=== PATIENT | female | born 1965 | race Caucasian/White ===

== ENCOUNTER 2017-04-28 17:30 | Emergency (ER) | payer MEDICARE, OTHER ==
[~2017-04-28] VITALS: Ht 172.7 cm; Wt 113.4 kg
[~2017-04-28 17:30] MED LIST: AMLODIPINE BESY10 M1 PO; BACTRIM 400 MG-1 TAB PO; BACTRIM DS 8001 TAB PO; BACTROBAN22 TP; CARVEDILOL 25MG25 MG PO; FENOFIBRATE MI134 MG PO; FUROSEMIDE 20MG20 MG PO; GLYCOLAX17 GM/DOSE PO; HYDRALAZINE HCL25 M1 PO; INSULIN GL100 UNITS/ SC; MEDROXYPROGESTE10 M1 PO; NOVOLOG FLEX100 U/ML SC; TRAZODONE 50MG50 MG PO; VITAMIN D31000 IU PO; ZOLPIDEM 10MG T10 MG PO
--- NOTE | 2017-04-28 18:25 | Emergency Room Report ---
History of Present Illness Time Seen by [id number] Presenting Problem in Triage Pt arrived:Walked Presenting Problem:SLICED OFF TIP OF FINGER Onset of symptoms date/time:04/28/17 or onset unknown for: Treatment Prior to Arrival: CLEANED AND WRAPPED AT HOME THIS MORNING [employer] Provided by:SELF Sepsis Risk Assessment: Temp: 98.3 B/P: 229/95 MAP: 139 Pulse: 93 Resp: 18 Recent fever? N Clinical Suspician of Infection? N Mental Status: 1 - Regular (Normal Baseline) Sepsis Risk:Low Sepsis Risk Have you (or family members/close friends) recently traveled outside the [place]? N If Yes, where/when: Have you had exposure to infectious disease within the past month? TB? Other? Specify: Comment The patient cut a piece of skin off of the tip of her RIGHT middle finger this morning about 6:30 to 7 AM while making pickles at home. She has been unable to get it to stop bleeding all day. Last tetanus shot is unknown. She is not on any blood thinners, but gets heparin in her vascular access at dialysis. ALLERGIES Coded Allergies: clarithromycin (From BIAXIN) (Mild, 04/28/17) hydrocodone (From LORTAB) (Mild, 04/28/17) lisinopril (TROUBLE BREATHING 04/28/17) Home Medications Reported Medications INSULIN GLARGINE (Lantus 3ML Solostar Pen) 6 UNITS SC QHS #10 VIAL Insulin Aspart, Recombinant (Novolog Flexpen) 15 UNITS SC ACHS #10 VIAL Furosemide (Furosemide) 120 MG PO BID #30 TAB Carvedilol (Carvedilol 25MG) 12.5 MG PO BID #60 TAB Amlodipine Besylate 5 MG PO DAILY #30 TAB TRAZODONE HCL (Trazodone HCl) 50 MG PO QHS CHOLECALCIFEROL (VITAMIN D3) (Vitamin D) 50,000 IUNITS PO DAILY Hydralazine Hcl (Hydralazine 25MG Tab) 25 MG PO BID History Medical History General CAD? No Angina: Yes MA: No Hypertension? Yes Hyperlipidemia? Yes CHF? No DVT? No PE? No COPD? No Asthma? No Anemia? No GERD? No Gastric ulcers? No GI Bleed? No Hernia? No Thyroid Problems? No Hypothyroidism? No CVA? No Seizures? No Diabetes? Yes Insulin Dependent: Yes Insulin Pump: No Home FSBS? Yes Renal Insuffiency? No End Stage Renal Disease? Yes UTI? Yes Stones? No BPH? No GB Disease: Yes Nephritic Syndrome? No Asplenia? No Hepatitis? No Sickle Cell Disease? No Arthritis? No Migraines? No Cataracts? No Glaucoma? No MRSA? No HIV? No TB? No Anxiety? No Depression? No Cancer? No More? 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 Cardiovascular regular rate/rhythm, normal peripheral pulses Extremities 1 cm x 0.5 cm avulsion of skin on the tip of her RIGHT middle finger with active oozing of blood. Neurologic alert, no motor/sensory deficits Medical Decision Making LABS/Meds/Orders Pt receiving controlled substance in ED? No Results/Orders Current Medication Orders Sig/Rubi Start time Last Medication Dose Route Stop Time Status Admin Diphtheria/Pertussis/ 0 .STK-MED ONE 04/28 1842 DC Tetanus Vacc IM Diphtheria/Pertussis/ 0.5 ML ONCE ONE 04/28 1830 DC Tetanus Vacc IM 04/28 1831 Bupivacaine HCl 0 .STK-MED ONE 04/28 1754 DC .ROUTE Silver Nitrate/ 0 .STK-MED ONE 04/28 1749 DC Potassium Nitrate EX Procedures Laceration/Wound Repair Progress Cautery of skin avulsion performed. Anesthesia with 0.5 percent Marcaine by digital block. Cauterized with silver nitrate. Departure Departure Disposition DC Home or Self Care(routine) Clinical Impression Primary Impression: Avulsion of skin of finger Qualifiers: Encounter type: initial encounter Qualified Code: S61.209A - Unspecified open wound of unspecified finger without damage to nail, initial encounter Condition STABLE Patient Instructions DI for Open Laceration Additional Instructions Gently cleanse daily with soap and water and apply a nonstick bandage. ED Critical Care Critical Care No at 1917
--- NOTE | 2017-04-28 18:25 | Emergency Room Report ---
History of Present Illness Time Seen by [id number] Presenting Problem in Triage Pt arrived:Walked Presenting Problem:SLICED OFF TIP OF FINGER Onset of symptoms date/time:04/28/17 or onset unknown for: Treatment Prior to Arrival: CLEANED AND WRAPPED AT HOME THIS MORNING [place] Provided by:SELF Sepsis Risk Assessment: Temp: 98.3 B/P: 229/95 MAP: 139 Pulse: 93 Resp: 18 Recent fever? N Clinical Suspician of Infection? N Mental Status: 1 - Regular (Normal Baseline) Sepsis Risk:Low Sepsis Risk Have you (or family members/close friends) recently traveled outside the [place]? N If Yes, where/when: Have you had exposure to infectious disease within the past month? TB? Other? Specify: Comment The patient cut a piece of skin off of the tip of her RIGHT middle finger this morning about 6:30 to 7 AM while making pickles at home. She has been unable to get it to stop bleeding all day. Last tetanus shot is unknown. She is not on any blood thinners, but gets heparin in her vascular access at dialysis. ALLERGIES Coded Allergies: clarithromycin (From BIAXIN) (Mild, 04/28/17) hydrocodone (From LORTAB) (Mild, 04/28/17) lisinopril (TROUBLE BREATHING 04/28/17) Home Medications Reported Medications INSULIN GLARGINE (Lantus 3ML Solostar Pen) 6 UNITS SC QHS #10 VIAL Insulin Aspart, Recombinant (Novolog Flexpen) 15 UNITS SC ACHS #10 VIAL Furosemide (Furosemide) 120 MG PO BID #30 TAB Carvedilol (Carvedilol 25MG) 12.5 MG PO BID #60 TAB Amlodipine Besylate 5 MG PO DAILY #30 TAB TRAZODONE HCL (Trazodone HCl) 50 MG PO QHS CHOLECALCIFEROL (VITAMIN D3) (Vitamin D) 50,000 IUNITS PO DAILY Hydralazine Hcl (Hydralazine 25MG Tab) 25 MG PO BID History Medical History General CAD? No Angina: Yes [place]: No Hypertension? Yes Hyperlipidemia? Yes CHF? No DVT? No PE? No COPD? No Asthma? No Anemia? No GERD? No Gastric ulcers? No GI Bleed? No Hernia? No Thyroid Problems? No Hypothyroidism? No CVA? No Seizures? No Diabetes? Yes Insulin Dependent: Yes Insulin Pump: No Home FSBS? Yes Renal Insuffiency? No End Stage Renal Disease? Yes UTI? Yes Stones? No BPH? No GB Disease: Yes Nephritic Syndrome? No Asplenia? No Hepatitis? No Sickle Cell Disease? No Arthritis? No Migraines? No Cataracts? No Glaucoma? No MRSA? No HIV? No TB? No Anxiety? No Depression? No Cancer? No More? 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 Cardiovascular regular rate/rhythm, normal peripheral pulses Extremities 1 cm x 0.5 cm avulsion of skin on the tip of her RIGHT middle finger with active oozing of blood. Neurologic alert, no motor/sensory deficits Medical Decision Making LABS/Meds/Orders Pt receiving controlled substance in ED? No Results/Orders Current Medication Orders Sig/Rubi Start time Last Medication Dose Route Stop Time Status Admin Diphtheria/Pertussis/ 0 .STK-MED ONE 04/28 1842 DC Tetanus Vacc IM Diphtheria/Pertussis/ 0.5 ML ONCE ONE 04/28 1830 DC Tetanus Vacc IM 04/28 1831 Bupivacaine HCl 0 .STK-MED ONE 04/28 1754 DC .ROUTE Silver Nitrate/ 0 .STK-MED ONE 04/28 1749 DC Potassium Nitrate EX Procedures Laceration/Wound Repair Progress Cautery of skin avulsion performed. Anesthesia with 0.5 percent Marcaine by digital block. Cauterized with silver nitrate. Departure Departure Disposition DC Home or Self Care(routine) Clinical Impression Primary Impression: Avulsion of skin of finger Qualifiers: Encounter type: initial encounter Qualified Code: S61.209A - Unspecified open wound of unspecified finger without damage to nail, initial encounter Condition STABLE Patient Instructions DI for Open Laceration Additional Instructions Gently cleanse daily with soap and water and apply a nonstick bandage. ED Critical Care Critical Care No at 1917
[2017-04-28 18:51] VITALS: BP 179/85
== END 2017-04-28 18:52 | disposition home or self-care (01) ==
LOC: ER 17:30
PROC: 0JQJ0ZZ Repair Right Hand Subcutaneous Tissue and Fascia, Open Approach (ICD-10-PCS; principal; 2017-04-28)
DX: S61.212A Laceration without foreign body of right middle finger without damage to nail, initial encounter (principal); W26.0XXA Contact with knife, initial encounter; Y92.010 Kitchen of single-family (private) house as the place of occurrence of the external cause; Z23 Encounter for immunization

== ENCOUNTER → 2017-07-11 | Outpatient (CLI) | payer MEDICARE, OTHER ==
[2017-07-11 09:50] LABS: HEMOGLOBIN 11.5 g/dL (12.2-16.2); LYMPH # 1.4 K/mm3 (0.7-4.5); LYMPH % 17.9 % (10-50.0)
[2017-07-11 11:16] LABS: BUN 48 mg/dL (7-18); GFR (ESTIMATED) 6 ML/MIN (59-)
--- NOTE | 2017-07-11 12:17 | RADIOLOGY REPORT PS360 ---
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 Mild atelectatic/fibrotic changes present in the left lower lobe. The remaining lungs are clear.. No acute bony abnormalities. IMPRESSION: Minimal left lower lobe atelectasis/fibrosis otherwise negative
== END ==
LOC: RT 09:23 → LAB 09:23
PROVIDERS: Physician Assistant Medical
DX: R06.00 Dyspnea, unspecified (principal); R53.83 Other fatigue